=== PATIENT | female | born 2000 | race Caucasian/White ===

== ENCOUNTER 2020-11-17 17:52 | Emergency (ER) | payer OTHER ==
[~2020-11-17] VITALS: Ht 165.1 cm; Wt 54.0 kg
[2020-11-17 18:11] VITALS: BP 125/78
--- NOTE | 2020-11-17 20:20 | NUR ---
PT ASSESSMENT COMPLETED BY KIMBERLEE, NO NURSING INTERVENTIONS NEEDED AT THIS TIME.
[2020-11-17] MEDS ORDERED: CYCL10TA33 PO (20:26)
[2020-11-17] MEDS ORDERED: KETO10TA2 PO (20:26)
--- NOTE | 2020-11-17 20:40 | NUR ---
Called name x 3 in Lobby - no response.
[2020-11-17 20:42] VITALS: BP 125/78
--- NOTE | 2020-11-17 20:42 | NUR ---
Pt name called x 3 in Lobby - no response . pt left w/o discharge paperwork.
--- NOTE | 2020-11-17 20:42 | NUR ---
Patient discharged with v/s stable. Patient left without discharge paperwork. Electronic Rx of cyclobenzaprine & ketorolac given.
== END 2020-11-17 20:42 | disposition left against medical advice (07) ==
LOC: MED 17:52
DX: M54.9 Dorsalgia, unspecified (principal); R11.2 Nausea with vomiting, unspecified; Z53.21 Procedure and treatment not carried out due to patient leaving prior to being seen by health care provider
CPT/HCPCS: 81002; 81025; 99283

== ENCOUNTER 2023-03-04 21:31 | Emergency (ER) | payer OTHER ==
[~2023-03-04] VITALS: Ht 165.1 cm; Wt 65.8 kg
[2023-03-04 21:50] VITALS: BP 112/77; PULSE 88; RESP 16; TEMP 100.6; O2SAT 99
--- NOTE | 2023-03-04 21:58 | NUR ---
TO LOBBY FOLLOWING TRIAGE
[2023-03-04 22:36] LABS: BASOPHILS % (AUTO) 0.4 % (0.0-2.0); HEMATOCRIT 35.8 % (36-48); LYMPHOCYTES # (AUTO) 0.7 K/uL (2.5-16.5); LYMPHOCYTES % (AUTO) 14.6 % (20.5-51.1); MEAN CORPUSCULAR HEMOGLOBIN 27 pg (27-31); MEAN CORPUSCULAR HGB CONC 34 g/dL (33-37); MEAN CORPUSCULAR VOLUME 80.4 fL (80-94); MONOCYTES # (AUTO) 0.3 K/uL (0.8-1.0); MONOCYTES % (AUTO) 6.4 % (1.7-9.3); NEUTROPHILS # (AUTO) 3.6 K/uL (1.8-7.7); NEUTROPHILS % (AUTO) 78.6 % (42.2-75.2); PLATELET COUNT (AUTO) 130 K/uL (140-450); RED BLOOD CELL COUNT(AUTO) 4.45 MIL/uL (4.20-5.40); WHITE BLOOD COUNT (AUTO) 4.6 K/uL (4.8-10.8)
[2023-03-04 22:44] LABS: APPEARANCE,URINE CLEAR (CLEAR); BILIRUBIN,URINE NEGATIVE (NEGATIVE); BLOOD, URINE 1+ (NEGATIVE); COLOR,URINE YELLOW (YELLOW); LEUKOCYTE ESTERASE ,URINE NEGATIVE (NEGATIVE); NITRITE, URINE NEGATIVE (NEGATIVE); UGLUCOSE NEGATIVE (NEGATIVE)
[2023-03-04 23:00] LABS: RBC,URINE 0-5 /HPF (0-5)
--- NOTE | 2023-03-05 00:58 | NUR ---
PT DID NOT ANSWER CALL FROM LOBBY.
--- NOTE | 2023-03-05 01:01 | NUR ---
PATIENT LEFT WITHOUT BEING SEEN BY DR. GAMBOA. NO FURTHER CARE PROVIDED FOR PATIENT.
--- NOTE | 2023-03-05 01:01 | NUR ---
PT CALLED TO CELL PHONE NUMBER AND LWBS. PATIENT IS AT HOME.
[2023-03-06] MEDS ORDERED: ACET-1194 PO (19:01)
== END 2023-03-05 01:01 | disposition left against medical advice (07) ==
LOC: MED 21:31
DX: O26.891 Other specified pregnancy related conditions, first trimester (principal); R10.2 Pelvic and perineal pain; Z3A.08 8 weeks gestation of pregnancy; Z53.21 Procedure and treatment not carried out due to patient leaving prior to being seen by health care provider
CPT/HCPCS: 36415; 76817; 81001; 81025; 84702; 85025; 86900; 86901; 99281

== ENCOUNTER 2023-03-06 17:11 | Emergency (ER) | payer OTHER ==
[~2023-03-06] VITALS: Ht 165.1 cm; Wt 70.8 kg
[2023-03-06 17:15] VITALS: BP 120/74; PULSE 108; RESP 17; TEMP 98.6; O2SAT 100
--- NOTE | 2023-03-06 17:27 | NUR ---
22 YO F PRESENTS W/DIFF BREATHING MOSTLY AT NIGHT, MCCRAY, FEVER, LOSS OF APPETITE X 4DAYS, : A0 LMP:01/10/23 HUEY:10/17/23 + CARE. PT DENIES URINATRY SYMPTOMS, FAMILY MEMBERS SICK AT HOME, MCCRAY, CHILLS, N,V,D,C. NAD NOTED. SAFETY MAINTAINED. HX:DENIES NKA
[2023-03-06] MEDS ORDERED: ACETAMINOPHEN EXTRA STRENGTH 500 MG TAB PO ONE (17:40)
[2023-03-06] MEDS ORDERED: ACETAMINOPHEN EXTRA STRENGTH 500 MG TAB ONE (18:07)
[2023-03-06 18:11] LABS: APPEARANCE,URINE CLEAR (CLEAR); BILIRUBIN,URINE NEGATIVE (NEGATIVE); BLOOD, URINE 2+ (NEGATIVE); COLOR,URINE YELLOW (YELLOW); LEUKOCYTE ESTERASE ,URINE NEGATIVE (NEGATIVE); NITRITE, URINE NEGATIVE (NEGATIVE); UGLUCOSE NEGATIVE (NEGATIVE)
--- NOTE | 2023-03-06 18:11 | NUR ---
TYLENOL 1000MG GIVEN PER PA, HURTADO ORDER. UNABLE TO ACCESS ON EMAR.
[2023-03-06 18:21] LABS: OTHER CASTS, URINE EPITHELIAL CASTS 2+ /LPF (None Seen)
[2023-03-06] MEDS ORDERED: ACET-1194 PO (19:01)
[2023-03-06 19:21] VITALS: BP 120/74; PULSE 108; RESP 17; TEMP 98.6; O2SAT 99
--- NOTE | 2023-03-06 19:32 | NUR ---
Patient discharged with v/s stable. Written and verbal after care instructions given and explained. Patient alert, oriented and verbalized understanding of instructions. Ambulatory with steady gait. All questions addressed prior to discharge. ID band removed. Patient advised to follow up with PMD IN 2-3 DAYS. Rx of TYLENOL given. Patient educated on indication of medication including possible reaction and side effects. Opportunity to ask questions provided and answered. PT INSTRUCTED TO RETURN TO THE ER IF CONDITION WORSENS, OR TO CALL 911 FOR AN EMERGENCY.
== END 2023-03-06 19:32 | disposition home or self-care (01) ==
LOC: MED 17:11
DX: O99.511 Diseases of the respiratory system complicating pregnancy, first trimester (principal); Z20.822 Contact with and (suspected) exposure to COVID-19; B34.9 Viral infection, unspecified; Z3A.01 Less than 8 weeks gestation of pregnancy; Z79.899 Other long term (current) drug therapy
CPT/HCPCS: 81001; 81025; 99283

== ENCOUNTER 2023-08-10 13:56 | Emergency (ER) | payer OTHER ==
[~2023-08-10] VITALS: Ht 165.1 cm; Wt 61.2 kg
[~2023-08-10 13:56] MED LIST: ACET-1194 PO
[2023-08-10 14:25] VITALS: BP 103/58; PULSE 72; RESP 14; TEMP 98; O2SAT 100
[2023-08-10 15:26] LABS: APPEARANCE,URINE CLEAR (CLEAR); BILIRUBIN,URINE NEGATIVE (NEGATIVE); BLOOD, URINE 3+ (NEGATIVE); COLOR,URINE YELLOW (YELLOW); LEUKOCYTE ESTERASE ,URINE NEGATIVE (NEGATIVE); NITRITE, URINE NEGATIVE (NEGATIVE); PROTEIN,URINE NEGATIVE (NEGATIVE); UGLUCOSE NEGATIVE (NEGATIVE); UROBILINOGEN,URINE 0.2 EU/dL (0.2 - 1)
[2023-08-10 15:32] LABS: BACTERIA,URINE FEW /HPF (None Seen); WBC,URINE 0-5 /HPF (0-5)
[2023-08-10] MEDS ORDERED: KETOROLAC 30 MG/ML VIAL IM ONE (16:50)
[2023-08-10] MEDS ORDERED: CEPH-588 PO (17:53)
[2023-08-10] MEDS ORDERED: AMOX1TAB8 PO (17:53)
[2023-08-10] MEDS ORDERED: IBUP-2213 PO (17:53)
[2023-08-10 18:01] VITALS: BP 112/61; PULSE 72; RESP 16; TEMP 98; O2SAT 100
== END 2023-08-10 18:01 | disposition home or self-care (01) ==
LOC: MED 13:56
DX: I88.9 Nonspecific lymphadenitis, unspecified (principal); Z79.2 Long term (current) use of antibiotics; Z79.1 Long term (current) use of non-steroidal anti-inflammatories (NSAID); Z79.899 Other long term (current) drug therapy
CPT/HCPCS: 81001; 81025; 87491; 96372; 99284; J1885